=== PATIENT | male | born 1990 | race African-American/Black ===

== ENCOUNTER 2019-02-12 10:44 | Outpatient (CLI) | payer OTHER | END 2019-02-12 10:45 | disposition home or self-care (01) | LOC: SC 10:44 | PROVIDERS: ATTEND Internal Medicine Pulmonary Disease | DX: R06.83 Snoring (principal); R06.81 Apnea, not elsewhere classified; G47.8 Other sleep disorders; R51 Headache; G47.10 Hypersomnia, unspecified | CPT/HCPCS: 99203; 99212 ==

== ENCOUNTER 2019-03-10 19:30 | Outpatient (CLI) | payer OTHER | END 2019-03-10 19:31 | disposition home or self-care (01) | LOC: SC 19:30 | PROVIDERS: ATTEND Internal Medicine Pulmonary Disease | DX: G47.33 Obstructive sleep apnea (adult) (pediatric) (principal) | CPT/HCPCS: 95810 ==

== ENCOUNTER 2019-04-02 13:24 | Outpatient (CLI) | payer OTHER | END 2019-04-02 13:25 | disposition home or self-care (01) | LOC: SC 13:24 | PROVIDERS: ATTEND Nurse Practitioner Family | DX: G47.33 Obstructive sleep apnea (adult) (pediatric) (principal) | CPT/HCPCS: 99212; 99214 ==